=== PATIENT | female | born 1945 | race Caucasian/White ===

== ENCOUNTER 2017-07-25 15:35 | Inpatient (IN) | payer MEDICARE, OTHER ==
[2017-07-25] MEDS ORDERED: Iopamidol 755 Mg/ML 100 ML Bottle IVPUSH ONE (16:21)
[2017-07-25 16:35] LABS: CHLORIDE,CL 100 mEq/L (98-106); SODIUM,NA 138 mEq/L (136-145)
--- NOTE | 2017-07-25 19:57 | PCM.HP ---
H&P History of Present Illness - General Date of Service: 07/25/17 Admit Problem/Dx: RLL Pulomnary Emboli LLE DVT Source of Information: Patient History Limitations: Reports: No Limitations - History of Present Illness Initial Comments - Free Text/Narative: Ele is a 72 year old female who initially presented to Dr. Russell's clinic earlier today with complaints of left lower extremity swelling. She reports that the swelling started about a week ago. She noticed that the swelling worsened on Tuesday. Through the weekend she noticed that the swelling would go away in the morning, after her legs were elevated all night. She denies any pain to the extremity. She denies any numbness or tingling to the affected extremity. 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 She has a prosthesis and uses crutches at times to ambulate. She reports she has had no symptoms other than the swelling. She denies any SOB, cough, chest pain, palpitations. She denies history of any blood clots. She does report a history of chronic lymphocytic leukemia, for which she has been in remission. She reports she last saw her oncologist in March and "everything looked good." She denies any abdominal pain, N/V/D, or pain anywhere else. She denies any fever or chills. Does not have any other associated symptoms. Symptom Onset Date: 07/18/17 Duration of Symptoms: Reports: Constant, Getting Worse Location: Reports: Lower Extremity, Left Associated Symptoms: Reports: Other (swelling) - Related Data Allergies/Adverse Reactions: Allergies Allergy/AdvReac Type Severity Reaction Status Date / Time latex Allergy Unknown UNKNOWN Verified 07/25/17 19:45 Home Medications: Home Meds HCTZ/Triamterene [Dyazide 25-37.5 MG] 25 mg PO DAILY 07/04/14 [History] Calcium Carb & Citrate/Vit D3 [Calcium + D3 ER Tablet] 600 mg PO BID 05/04/15 [ History] Potassium Gluconate [Potassium] 1,785 mg PO DAILY 07/25/17 [History] Social & Family History - Tobacco Use Smoking Status *Q: Never Smoker Years of Tobacco use: 50 Second Hand Smoke Exposure: No - Alcohol Use Days Per Week of Alcohol Use: 7 Number of Drinks Per Day: 2 Total Drinks Per Week: 14 - Recreational Drug Use Recreational Drug Use: No - Living Situation & Occupation Living situation: Reports: with Family Occupation: Retired H&P Review of Systems - Review of Systems: Review Of Systems: ROS reveals no pertinent complaints other than HPI. General: Reports: No Symptoms. Denies: Fever, Chills, Weakness, Fatigue, Decreased Appetite HEENT: Reports: No Symptoms Pulmonary: Reports: No Symptoms. Denies: Shortness of Breath, Wheezing, Pleuritic Chest Pain, Cough, Sputum, Hemoptysis Cardiovascular: Reports: Edema (LLE). Denies: Chest Pain, Palpitations, Dyspnea on Exertion, Lightheadedness, Syncope Gastrointestinal: Reports: No Symptoms. Denies: Abdominal Pain, Black Stool, Bloody Stool, Diarrhea, Hematochezia, Melena, Nausea, Vomiting Genitourinary: Reports: No Symptoms. Denies: Dysuria, Frequency Musculoskeletal: Reports: No Symptoms. Denies: Leg Pain Skin: Reports: No Symptoms Psychiatric: Reports: No Symptoms Neurological: Reports: No Symptoms Hematologic/Lymphatic: Reports: No Symptoms. Denies: Anemia, Easy Bleeding, Easy Bruising, Swollen Glands Immunologic: Reports: No Symptoms Exam - Exam Exam: See Below - Vital Signs Weight: 153 lb 4.8 oz - Exam Quality Assessment: DVT Prophylaxis General: Alert, Oriented, Cooperative Neck: Supple, Trachea Midline, 2 Lungs: Clear to Auscultation, Normal Respiratory Effort Cardiovascular: Regular Rate, Regular Rhythm GI/Abdominal Exam: Normal Bowel Sounds, Soft, Non-Tender, No Organomegaly, No Distention, No Abnormal Bruit, No Mass, Pelvis Stable Back Exam: Normal Inspection, Full Range of Motion, NT Extremities: Normal Range of Motion, Non-Tender, Normal Capillary Refill, Sorin' s Sign (LLE +), Other (LLE 3+ pitting edema) Peripheral Pulses: 1+: Posterior Tibial (L), 2+: Dorsalis Pedis (L) Skin: Warm, Dry, Intact Neurological: Cranial Nerves Intact, Reflexes Equal Bilateral Neuro Extensive - Mental Status: Alert, Oriented x3, Normal Mood/Affect, Normal Cognition Neuro Extensive - Motor, Sensory, Reflexes: CN II-XII Intact, Normal Gait, Normal Reflexes Psychiatric: Alert, Normal Affect, Normal Mood - Patient Data Lab Results Last 24 hrs: Laboratory Results - last 24 hr 07/25/17 07/25/17 07/25/17 Range/Units 15:48 15:48 15:48 WBC 20.7 H* (5.0-10.0) 10^3/uL RBC 4.12 (4.00-5.50) 10^6/uL Hgb 13.7 (12.0-16.0) g/dL Hct 40.5 (37.0-47.0) % MCV 98.3 H (82.0-94.0) fL MCH 33.3 H (27.0-32.0) pg MCHC 33.8 (33.0-38.0) g/dL RDW Coeff of Thiago 12.0 (11.0-15.0) % Plt Count 238 (150-400) 10^3/uL Neut % (Auto) 31.2 L (35-85) % Lymph % (Auto) 63.2 H (10-55) % [place] % (Auto) 4.5 (0-16) % Eos % (Auto) 0.9 (0-5) % Baso % (Auto) 0.2 (0-3) % Neut # (Auto) 6.44 (1.80-7.00) 10^3/uL Lymph # (Auto) 13.07 H (1.00-4.80) 10^3/uL [place] # (Auto) 0.94 H (0.00-0.80) 10^3/uL Eos # (Auto) 0.19 (0.00-0.45) 10^3/uL Baso # (Auto) 0.05 10^3/uL ESR 10 (0-20) mm/hr D-Dimer, Quantitative 14.03 H (0.00-0.50) Sodium 138 (136-145) mEq/L Potassium 3.2 L (3.5-5.0) mEq/L Chloride 100 (98-106) mEq/L Carbon Dioxide 32 (21-32) mmol/L BUN 9 (7-18) mg/dL Creatinine 0.7 (0.6-1.0) mg/dL Est Cr Clr Drug Dosing TNP Estimated GFR (MDRD) > 60 (>=60) mL/min Glucose 92 (75-99) mg/dL Calcium 9.1 (8.4-10.1) mg/dL Total Bilirubin 0.7 (0.0-1.0) mg/dL AST 22 (15-37) U/L ALT 38 (12-78) U/L Alkaline Phosphatase 86 (46-116) U/L Total Protein 6.9 (6.4-8.2) g/dL Albumin 3.5 (3.4-5.0) g/dL Vitamin B12 630 (193-986) PG/ML Folate 18.1 (>8.6) NG/ML TSH, Ultra Sensitive 1.61 (0.36-5.60) uIU/mL Result Diagrams: 07/26/17 07:10 07/26/17 07:00 *Q Meaningful Use (ADM) - VTE *Q VTE Criteria *Q: - Stroke *Q Stroke Criteria *Q: - AMI *Q AMI Criteria *Q: - Problem List (1) Pulmonary embolism SNOMED Code(s): 72414982 ICD Code: I26.99 - OTHER PULMONARY EMBOLISM WITHOUT ACUTE COR PULMONALE Status: Acute Priority: High Current Visit: Yes Qualifiers: Pulmonary embolism type: other Chronicity: acute Acute cor pulmonale presence: without acute cor pulmonale Qualified Code(s): I26.99 - Other pulmonary embolism without acute cor pulmonale (2) DVT (deep venous thrombosis) SNOMED Code(s): 801107941 ICD Code: I82.409 - ACUTE EMBOLISM AND THOMBOS UNSP DEEP VN UNSP LOWER EXTREMITY Status: Acute Priority: High Current Visit: Yes Qualifiers: DVT location: lower extremity Affected thrombotic vein of extremity: other lower extremity vein Chronicity: acute Laterality: left Qualified Code(s) : I82.492 - Acute embolism and thrombosis of other specified deep vein of left lower extremity (3) CLL (chronic lymphocytic leukemia) SNOMED Code(s): 50718761 ICD Code: C91.10 - CHRONIC LYMPHOCYTIC LEUK OF B-CELL TYPE NOT ACHIEVE REMIS Status: Chronic Priority: Medium Current Visit: Yes Problem List Initiated/Reviewed/Updated: Yes Orders Last 24hrs: Active Orders 24 hr Category Date Time Status Ang Chest [CT] Routine Exams 07/25/17 Taken VL Duplex Lwr Ext Veins Ltd Lt [US] Routine Exams 07/25/17 Taken Assessment/Plan Comment:: Admit to inpatient Will dose 10 mg Coumadin today Daily INR, CBC, and BMP Lovenox 60 mg BID until INR therapeutic Patient will be inpatient until INR is therapeutic. Potential length of stay 3- 5 days.
[2017-07-25] MEDS ORDERED: Magnesium Hydroxide 400 MG/5 ML Susp 30 ML Cup PO PRN (20:00)
[2017-07-25] MEDS ORDERED: Ondansetron 4 MG/2 ML SDV IV PRN (20:00)
[2017-07-25] MEDS ORDERED: Sodium Chloride 0.9% 10 ML Syringe FLUSH PRN (20:00)
[2017-07-25] MEDS: Enoxaparin 60 MG/0.6 ML Syringe SUBCUT SCH (21:07)
[2017-07-25] MEDS: Calcium Carbonate/Vitamin D3 1250 MG-200 Unit Tab PO SCH (21:07)
[2017-07-25] MEDS: Temazepam 15 MG Cap PO PRN (22:16)
[2017-07-25] MEDS ORDERED: Warfarin 5 MG Tab PO ONE (22:27)
[2017-07-26] MEDS: Enoxaparin 60 MG/0.6 ML Syringe SUBCUT SCH ×3 (07:49→19:46)
[2017-07-26] MEDS: Calcium Carbonate/Vitamin D3 1250 MG-200 Unit Tab PO SCH ×2 (07:50→19:45)
[2017-07-26] MEDS: Hydrochlorothiazide/Triamterene 25-37.5 MG Cap PO SCH (07:50)
[2017-07-26] MEDS ORDERED: POTASSIUM GLUCONATE PO SCH (08:00)
[2017-07-26] MEDS ORDERED: Iopamidol 612 MG/ML 100 ML Bottle IVPUSH ONE (08:13)
[2017-07-26 08:24] LABS: CHLORIDE,CL 103 mEq/L (98-106); SODIUM,NA 140 mEq/L (136-145)
[2017-07-26] MEDS: Potassium Gluconate (99 MG) 2 MEQ Tab PO SCH (08:51)
[2017-07-26] MEDS ORDERED: Potassium Chloride 40 MEQ in Premix Bag 1 BAG IV ONE (09:00)
[2017-07-26] MEDS ORDERED: Dextrose 5%-0.45% NaCl 1,000 ML IV ONE (09:00)
--- NOTE | 2017-07-26 09:21 | PN ---
DATE: 07/26/2017 S: This is an elderly female who I saw in the clinic in [place] yesterday with a swollen left lower extremity. Right extremity had been amputated, D-dimer was elevated, so I went ahead and did do a CTA, it shows multiple pulmonary emboli. O: GENERAL: The patient is alert and orientated. VITAL SIGNS: As noted. NECK: Supple. CHEST: Clear. CARDIAC: Regular. EXTREMITIES: Edema in that left lower extremity is down. ASSESSMENT: DEEP VENOUS THROMBOSIS, MULTIPLE PULMONARY EMBOLI. P: Continue anticoagulation. SARA/MALLORIE /[id number]
[2017-07-26] MEDS: Warfarin 5 MG Tab PO SCH (12:18)
[2017-07-26] MEDS: Acetaminophen 325 MG Tab PO PRN (21:33)
[2017-07-26] MEDS: Temazepam 15 MG Cap PO PRN (21:59)
[2017-07-27 07:24] LABS: CHLORIDE,CL 105 mEq/L (98-106); SODIUM,NA 140 mEq/L (136-145)
[2017-07-27] MEDS: Hydrochlorothiazide/Triamterene 25-37.5 MG Cap PO SCH (07:43)
[2017-07-27] MEDS: Enoxaparin 60 MG/0.6 ML Syringe SUBCUT SCH ×2 (07:43→20:10)
[2017-07-27] MEDS: Calcium Carbonate/Vitamin D3 1250 MG-200 Unit Tab PO SCH ×2 (07:43→20:13)
[2017-07-27] MEDS: Warfarin 5 MG Tab PO SCH (07:43)
[2017-07-27] MEDS: Potassium Gluconate (99 MG) 2 MEQ Tab PO SCH (07:43)
--- NOTE | 2017-07-27 08:16 | PCM.PN ---
- General Info Date of Service: 07/27/17 Admission Dx/Problem (Free Text): RLL Pulomnary Emboli LLE DVT Functional Status: Reports: Pain Controlled, Tolerating Diet, Ambulating, Urinating. Denies: New Symptoms - Review of Systems General: Reports: No Symptoms. Denies: Fever, Weakness, Fatigue, Night Sweats HEENT: Reports: No Symptoms Pulmonary: Reports: No Symptoms. Denies: Shortness of Breath, Pleuritic Chest Pain, Cough, Sputum, Hemoptysis, Wheezing Cardiovascular: Reports: Edema (LLE 1+ pitting edema, much improved). Denies: Chest Pain, Palpitations, Dyspnea on Exertion, Orthopnea, Lightheadedness Gastrointestinal: Reports: No Symptoms. Denies: Abdominal Pain, Constipation, Decreased Appetite, Diarrhea, Hematochezia, Melena, Nausea, Vomiting Genitourinary: Reports: No Symptoms. Denies: Dysuria, Frequency Musculoskeletal: Reports: No Symptoms Skin: Reports: No Symptoms Neurological: Reports: No Symptoms Psychiatric: Reports: No Symptoms - Patient Data Vitals - Most Recent: Last Vital Signs Temp 98.0 F 07/27/17 04:00 Pulse 78 07/27/17 04:00 Resp 20 07/27/17 04:00 BP 140/76 07/27/17 04:00 Pulse Ox 96 07/27/17 04:00 Weight - Most Recent: 153 lb 4.8 oz Lab Results Last 24 Hours: Laboratory Results - last 24 hr 07/26/17 07/26/17 07/27/17 Range/Units 07:00 07:10 06:55 WBC (5.0-10.0) 10^3/uL RBC (4.00-5.50) 10^6/uL Hgb (12.0-16.0) g/dL Hct (37.0-47.0) % MCV (82.0-94.0) fL MCH (27.0-32.0) pg MCHC (33.0-38.0) g/dL RDW Coeff of Thiago (11.0-15.0) % Plt Count (150-400) 10^3/uL Neut % (Auto) (35-85) % Lymph % (Auto) (10-55) % [place] % (Auto) (0-16) % Eos % (Auto) (0-5) % Baso % (Auto) (0-3) % Neut # (Auto) (1.80-7.00) 10^3/uL Lymph # (Auto) (1.00-4.80) 10^3/uL [place] # (Auto) (0.00-0.80) 10^3/uL Eos # (Auto) (0.00-0.45) 10^3/uL Baso # (Auto) 10^3/uL PT 10.7 16.1 H (9.7-12.3) SEC INR 0.99 1.47 H (0.92-1.18) Sodium 140 (136-145) mEq/L Potassium 3.3 L (3.5-5.0) mEq/L Chloride 103 (98-106) mEq/L Carbon Dioxide 30 (21-32) mmol/L BUN 11 (7-18) mg/dL Creatinine 0.7 (0.6-1.0) mg/dL Est Cr Clr Drug Dosing 66.01 mL/min Estimated GFR (MDRD) > 60 (>=60) mL/min Glucose 111 H (75-99) mg/dL Calcium 8.9 (8.4-10.1) mg/dL 07/27/17 07/27/17 Range/Units 06:55 06:55 WBC 14.1 H (5.0-10.0) 10^3/uL RBC 3.80 L (4.00-5.50) 10^6/uL Hgb 12.6 (12.0-16.0) g/dL Hct 38.1 (37.0-47.0) % MCV 100.3 H (82.0-94.0) fL MCH 33.2 H (27.0-32.0) pg MCHC 33.1 (33.0-38.0) g/dL RDW Coeff of Thiago 12.2 (11.0-15.0) % Plt Count 209 (150-400) 10^3/uL Neut % (Auto) 27.8 L (35-85) % Lymph % (Auto) 66.1 H (10-55) % [place] % (Auto) 4.6 (0-16) % Eos % (Auto) 1.3 (0-5) % Baso % (Auto) 0.2 (0-3) % Neut # (Auto) 3.92 (1.80-7.00) 10^3/uL Lymph # (Auto) 9.33 H (1.00-4.80) 10^3/uL [place] # (Auto) 0.65 (0.00-0.80) 10^3/uL Eos # (Auto) 0.18 (0.00-0.45) 10^3/uL Baso # (Auto) 0.03 10^3/uL PT (9.7-12.3) SEC INR (0.92-1.18) Sodium 140 (136-145) mEq/L Potassium 3.5 (3.5-5.0) mEq/L Chloride 105 (98-106) mEq/L Carbon Dioxide 30 (21-32) mmol/L BUN 10 (7-18) mg/dL Creatinine 0.6 (0.6-1.0) mg/dL Est Cr Clr Drug Dosing 77.01 mL/min Estimated GFR (MDRD) > 60 (>=60) mL/min Glucose 120 H (75-99) mg/dL Calcium 8.9 (8.4-10.1) mg/dL Med Orders - Current: Current Medications Acetaminophen (Tylenol) 650 mg PO Q4H PRN PRN Reason: Pain (Mild 1-3)/fever Last Admin: 07/26/17 21:33 Dose: 650 mg Calcium Carbonate (Calcium Carbonate/Vitamin D 1250 Mg-200 Unit) 1 tab PO BID [facility] Last Admin: 07/27/17 07:43 Dose: 1 tab Enoxaparin Sodium (Lovenox) 60 mg SUBCUT Q12H [facility] Last Admin: 07/27/17 07:43 Dose: 60 mg Magnesium Hydroxide (Milk Of Magnesia) 30 ml PO Q12H PRN PRN Reason: Constipation Ondansetron HCl (Zofran) 4 mg IV Q6H PRN PRN Reason: Nausea/Vomiting Potassium (Potassium Gluconate) 6 meq PO DAILY [facility] Last Admin: 07/27/17 07:43 Dose: 6 meq Sodium Chloride (Saline Flush) 10 ml FLUSH ASDIRECTED PRN PRN Reason: Keep Vein Open Temazepam (Restoril) 15 mg PO BEDTIME PRN PRN Reason: Sleep Last Admin: 07/26/17 21:59 Dose: 15 mg Triamterene/HCTZ (Dyazide 25-37.5 Mg) 1 each PO DAILY [facility] Last Admin: 07/27/17 07:43 Dose: 1 each Warfarin Sodium (Coumadin) 10 mg PO DAILY [facility] Last Admin: 07/27/17 07:43 Dose: 10 mg Discontinued Medications Enoxaparin Sodium (Lovenox) 60 mg SUBCUT Q12H [facility] Last Admin: 07/26/17 07:49 Dose: 60 mg Dextrose/Sodium Chloride (Dextrose 5%-1/2 Ns) 1,000 mls @ 100 mls/hr IV ONETIME ONE Stop: 07/26/17 18:59 Last Admin: 07/26/17 10:57 Dose: 100 mls/hr Potassium Chloride 40 meq/ (Premix) 100 mls @ 10 mls/hr IV ONETIME ONE Stop: 07/26/17 18:59 Last Admin: 07/26/17 10:59 Dose: 10 mls/hr Iopamidol (Isovue-370 (76%)) 100 ml IVPUSH ONETIME ONE Stop: 07/25/17 16:22 Last Admin: 07/25/17 16:44 Dose: 100 ml Iopamidol (Isovue-300 (61%)) 100 ml IVPUSH ONETIME ONE Stop: 07/26/17 08:14 Last Admin: 07/26/17 14:09 Dose: 100 ml Non-Formulary Medication (Potassium Gluconate [Potassium]) 1,785 mg PO DAILY [facility] Warfarin Sodium (Coumadin) 10 mg PO ONETIME ONE Stop: 07/25/17 22:28 Last Admin: 07/25/17 23:37 Dose: 10 mg - Problem List & Annotations (1) Pulmonary embolism SNOMED Code(s): 63984471 Code(s): I26.99 - OTHER PULMONARY EMBOLISM WITHOUT ACUTE COR PULMONALE Status: Acute Priority: High Current Visit: Yes Qualifiers: Pulmonary embolism type: other Chronicity: acute Acute cor pulmonale presence: without acute cor pulmonale Qualified Code(s): I26.99 - Other pulmonary embolism without acute cor pulmonale (2) DVT (deep venous thrombosis) SNOMED Code(s): 543865677 Code(s): I82.409 - ACUTE EMBOLISM AND THOMBOS UNSP DEEP VN UNSP LOWER EXTREMITY Status: Acute Priority: High Current Visit: Yes Qualifiers: DVT location: lower extremity Affected thrombotic vein of extremity: other lower extremity vein Chronicity: acute Laterality: left Qualified Code(s) : I82.492 - Acute embolism and thrombosis of other specified deep vein of left lower extremity (3) CLL (chronic lymphocytic leukemia) SNOMED Code(s): 85837863 Code(s): C91.10 - CHRONIC LYMPHOCYTIC LEUK OF B-CELL TYPE NOT ACHIEVE REMIS Status: Chronic Priority: Medium Current Visit: Yes - My Orders Last 24 Hours: My Active Orders 07/26/17 08:00 Abdomen Pelvis w Cont [CT] Stat Enoxaparin [Lovenox] 60 mg SUBCUT Q12H HCTZ/Triamterene [Dyazide 25-37.5 MG] 1 each PO DAILY Potassium Gluconate 6 meq PO DAILY 07/26/17 12:00 Warfarin [Coumadin] 10 mg PO DAILY 07/28/17 06:00 BMP [BASIC METABOLIC PANEL,BMP] [CHEM] DAILY CBC WITH AUTO DIFF [HEME] DAILY INR,PT,PROTHROMBIN TIME [COAG] DAILY 07/29/17 06:00 BMP [BASIC METABOLIC PANEL,BMP] [CHEM] DAILY INR,PT,PROTHROMBIN TIME [COAG] DAILY 07/30/17 06:00 INR,PT,PROTHROMBIN TIME [COAG] DAILY - Plan Plan:: Admit to inpatient Will dose 10 mg Coumadin today Daily INR, CBC, and BMP Lovenox 60 mg BID until INR therapeutic Patient will be inpatient until INR is therapeutic. Potential length of stay 3- 5 days.
--- NOTE | 2017-07-27 12:58 | PN ---
DATE: 07/27/2017 S: Ele Johnson is in with bilateral pulmonary emboli. O: NECK: Supple. CHEST: Clear. CARDIAC: Good. EXTREMITIES: Edema of the left lower extremity is almost gone. ASSESSMENT: MULTIPLE PULMONARY EMBOLI. P: Continue anticoagulation. Her potassium has corrected. SARA/MALLORIE /[id number]
[2017-07-27] MEDS: Acetaminophen 325 MG Tab PO PRN (16:34)
[2017-07-27] MEDS: Temazepam 15 MG Cap PO PRN (21:43)
[2017-07-28 07:33] LABS: CHLORIDE,CL 104 mEq/L (98-106); SODIUM,NA 139 mEq/L (136-145)
[2017-07-28 07:48] VITALS: BP 149/85
[2017-07-28] MEDS: Calcium Carbonate/Vitamin D3 1250 MG-200 Unit Tab PO SCH (08:43)
[2017-07-28] MEDS: Potassium Gluconate (99 MG) 2 MEQ Tab PO SCH (08:43)
[2017-07-28] MEDS: Hydrochlorothiazide/Triamterene 25-37.5 MG Cap PO SCH (08:43)
--- NOTE | 2017-07-28 08:43 | PCM.DCSUM1 ---
Discharge Summary - Hospital Course HPI Initial Comments: Ele is a 72 year old female who was admitted to the hospital on 07/25/[address] Echeverria clinic for DVT and Pulmonary Embolism. She had a swollen LLE and an elevated D-Dimer. US of LLE showed clotting of deep perneal vein. Chest CTA revealed multiple pulmonary emboli in the right lower lobe. Patient was admitted for anticoagulation. She was initially dosed 10 mg of Coumadin. She was bridged with Lovenox until her INR was therapeutic. Her INR went from 0.99 07/26, 1.47 07/27, and 2.34 07/28 (date of discharge). Her swelling in her leg improved drastically. At the time of discharge she had trace swelling in her LLE. Pedal and post tib pulses were 2+. She had no complications during hospital stay and was feeling well. At time of discharge she was anxious to go home. Patient will be discharged home on 5 mg daily of Coumadin. She is to follow up with Dr. Russell in clinic on Tuesday in [place]. Will get INR at that time. - Discharge Data Discharge Date: 07/28/17 Discharge Disposition: Home, Self-Care 01 Condition: Good - Discharge Diagnosis/Problem(s) (1) Pulmonary embolism SNOMED Code(s): 79472105 ICD Code: I26.99 - OTHER PULMONARY EMBOLISM WITHOUT ACUTE COR PULMONALE Status: Acute Priority: High Qualifiers: Pulmonary embolism type: other Chronicity: acute Acute cor pulmonale presence: without acute cor pulmonale Qualified Code(s): I26.99 - Other pulmonary embolism without acute cor pulmonale (2) DVT (deep venous thrombosis) SNOMED Code(s): 999457343 ICD Code: I82.409 - ACUTE EMBOLISM AND THOMBOS UNSP DEEP VN UNSP LOWER EXTREMITY Status: Acute Priority: High Qualifiers: DVT location: lower extremity Affected thrombotic vein of extremity: other lower extremity vein Chronicity: acute Laterality: left Qualified Code(s) : I82.492 - Acute embolism and thrombosis of other specified deep vein of left lower extremity (3) CLL (chronic lymphocytic leukemia) SNOMED Code(s): 32932281 ICD Code: C91.10 - CHRONIC LYMPHOCYTIC LEUK OF B-CELL TYPE NOT ACHIEVE REMIS Status: Chronic Priority: Medium - Patient Instructions Diet: Usual Diet as Tolerated Activity: As Tolerated Driving: May Drive Today Notify Provider of: Fever, Increased Pain, Swelling and Redness - Discharge Plan Prescriptions/Med Rec: Warfarin [Coumadin] 5 mg PO DAILY 30 Days #30 tablet Home Medications: Home Meds HCTZ/Triamterene [Dyazide 25-37.5 MG] 25 mg PO DAILY 07/04/14 [History] Calcium Carb & Citrate/Vit D3 [Calcium + D3 ER Tablet] 600 mg PO BID 05/04/15 [ History] Potassium Gluconate [Potassium] 1,785 mg PO DAILY 07/25/17 [History] Warfarin [Coumadin] 5 mg PO DAILY 30 Days #30 tablet 07/28/17 [Rx] Patient Handouts: Warfarin: What You Need to Know, Pulmonary Embolism, Deep Vein Thrombosis Referrals: Lexx Russell MD [Primary Care Provider] - - Discharge Summary/Plan Comment Discharge Summary/Plan Comment: Coumadin 5 mg daily Follow up in clinic with Dr. Russell on Tuesday in [place] Notify provider sooner of any worsening of symptoms, shortness of breath, or chest pain - Patient Data Vitals - Most Recent: Last Vital Signs Temp 97.2 F 07/28/17 07:47 Pulse 68 07/28/17 07:47 Resp 20 07/28/17 07:47 BP 149/85 H 07/28/17 07:47 Pulse Ox 96 07/28/17 07:47 Weight - Most Recent: 153 lb 4.8 oz Lab Results - Last 24 hrs: Laboratory Results - last 24 hr 07/28/17 07/28/17 07/28/17 Range/Units 07:11 07:11 07:11 WBC 15.3 H (5.0-10.0) 10^3/uL RBC 3.94 L (4.00-5.50) 10^6/uL Hgb 13.2 (12.0-16.0) g/dL Hct 38.3 (37.0-47.0) % MCV 97.2 H (82.0-94.0) fL MCH 33.5 H (27.0-32.0) pg MCHC 34.5 (33.0-38.0) g/dL RDW Coeff of Thiago 12.0 (11.0-15.0) % Plt Count 229 (150-400) 10^3/uL Neut % (Auto) 26.6 L (35-85) % Lymph % (Auto) 69.5 H (10-55) % [place] % (Auto) 2.7 (0-16) % Eos % (Auto) 1.0 (0-5) % Baso % (Auto) 0.2 (0-3) % Neut # (Auto) 4.07 (1.80-7.00) 10^3/uL Lymph # (Auto) 10.63 H (1.00-4.80) 10^3/uL [place] # (Auto) 0.41 (0.00-0.80) 10^3/uL Eos # (Auto) 0.15 (0.00-0.45) 10^3/uL Baso # (Auto) 0.03 10^3/uL PT 26.0 H (9.7-12.3) SEC INR 2.34 H (0.92-1.18) Sodium 139 (136-145) mEq/L Potassium 3.7 (3.5-5.0) mEq/L Chloride 104 (98-106) mEq/L Carbon Dioxide 30 (21-32) mmol/L BUN 9 (7-18) mg/dL Creatinine 0.6 (0.6-1.0) mg/dL Est Cr Clr Drug Dosing 77.01 mL/min Estimated GFR (MDRD) > 60 (>=60) mL/min Glucose 100 H (75-99) mg/dL Calcium 8.9 (8.4-10.1) mg/dL Med Orders - Current: Current Medications Acetaminophen (Tylenol) 650 mg PO Q4H PRN PRN Reason: Pain (Mild 1-3)/fever Last Admin: 07/27/17 16:34 Dose: 650 mg Calcium Carbonate (Calcium Carbonate/Vitamin D 1250 Mg-200 Unit) 1 tab PO BID [facility] Last Admin: 07/27/17 20:13 Dose: 1 tab Enoxaparin Sodium (Lovenox) 60 mg SUBCUT Q12H [facility] Last Admin: 07/27/17 20:10 Dose: 60 mg Magnesium Hydroxide (Milk Of Magnesia) 30 ml PO Q12H PRN PRN Reason: Constipation Ondansetron HCl (Zofran) 4 mg IV Q6H PRN PRN Reason: Nausea/Vomiting Potassium (Potassium Gluconate) 6 meq PO DAILY [facility] Last Admin: 07/27/17 07:43 Dose: 6 meq Sodium Chloride (Saline Flush) 10 ml FLUSH ASDIRECTED PRN PRN Reason: Keep Vein Open Temazepam (Restoril) 15 mg PO BEDTIME PRN PRN Reason: Sleep Last Admin: 07/27/17 21:43 Dose: 15 mg Triamterene/HCTZ (Dyazide 25-37.5 Mg) 1 each PO DAILY [facility] Last Admin: 07/27/17 07:43 Dose: 1 each Warfarin Sodium (Coumadin) 10 mg PO DAILY [facility] Last Admin: 07/27/17 07:43 Dose: 10 mg Discontinued Medications Enoxaparin Sodium (Lovenox) 60 mg SUBCUT Q12H [facility] Last Admin: 07/26/17 07:49 Dose: 60 mg Dextrose/Sodium Chloride (Dextrose 5%-1/2 Ns) 1,000 mls @ 100 mls/hr IV ONETIME ONE Stop: 07/26/17 18:59 Last Admin: 07/26/17 10:57 Dose: 100 mls/hr Potassium Chloride 40 meq/ (Premix) 100 mls @ 10 mls/hr IV ONETIME ONE Stop: 07/26/17 18:59 Last Admin: 07/26/17 10:59 Dose: 10 mls/hr Iopamidol (Isovue-370 (76%)) 100 ml IVPUSH ONETIME ONE Stop: 07/25/17 16:22 Last Admin: 07/25/17 16:44 Dose: 100 ml Iopamidol (Isovue-300 (61%)) 100 ml IVPUSH ONETIME ONE Stop: 07/26/17 08:14 Last Admin: 07/26/17 14:09 Dose: 100 ml Non-Formulary Medication (Potassium Gluconate [Potassium]) 1,785 mg PO DAILY [facility] Warfarin Sodium (Coumadin) 10 mg PO ONETIME ONE Stop: 07/25/17 22:28 Last Admin: 07/25/17 23:37 Dose: 10 mg *Q Meaningful Use (DIS) - VTE *Q VTE Criteria *Q: - Stroke *Q Stroke Criteria *Q: - AMI *Q AMI Criteria *Q:
[2017-07-28] MEDS: Warfarin 5 MG Tab PO SCH (08:48)
[2017-07-28] MEDS: Enoxaparin 60 MG/0.6 ML Syringe SUBCUT SCH (08:48)
== END 2017-07-28 10:45 | disposition home or self-care (01) | DRG 176 ==
LOC: CC.CHC 15:35 → CC.MS 15:35 → UNDOADMIN 18:09 → CC.MS 18:09
PROVIDERS: ADMIT Nurse Practitioner Family; ATTEND General Practice
DX: R06.9 Unspecified abnormalities of breathing (principal); I26.99 Other pulmonary embolism without acute cor pulmonale; I82.492 Acute embolism and thrombosis of other specified deep vein of left lower extremity; C91.11 Chronic lymphocytic leukemia of B-cell type in remission; R60.9 Edema, unspecified; R06.02 Shortness of breath; M19.90 Unspecified osteoarthritis, unspecified site; I10 Essential (primary) hypertension; Z91.040 Latex allergy status; Z79.899 Other long term (current) drug therapy; Z87.891 Personal history of nicotine dependence; Z89.611 Acquired absence of right leg above knee
CPT/HCPCS: 36415; 71275; 80053; 82607; 82746; 84443; 85025; 85379; 85651; 93971; Q9967 ×2; 74177; 80048; 81001; 83735; 85610; A9270-GY; J1650; J3480; J7042

== ENCOUNTER → 2019-08-28 | Day surgery (SDC) | payer MEDICARE, OTHER ==
[~2019-08-28] MED LIST: Lidocaine 1% 20 ML MDV ONE
[2019-08-28 13:58] VITALS: BP 132/77; PULSE 72
--- NOTE | 2019-08-29 09:47 | OR ---
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 SURGEON: Gerald Longo MD PROCEDURE: RFS CATHETER ABLATION, INCOMPETENT SUPERVISOR CIGAR MAKING MACHINE. ANESTHESIA: Local. COMPLICATIONS: None. SPECIMEN: None. FINDINGS: Successful ablation of incompetent audit machine operator, left calf, 20 cm from heel. INDICATIONS: The patient has a CEAP classification of 5 with recurrent ulcerations in the calf area. Multiple prior ablations and sclerotherapy have been done. She has documented audit machine operator in the calf and it measured at our facility just under 3.5 cm, but with documented reflux, she elected to proceed with ablation. DESCRIPTION OF PROCEDURE: The patient was prepped and draped, placed in the supine position with left leg externally rotated. Incompetent audit machine operator was isolated via ultrasound. A small lidocaine deposit was made in the epidermis. An 11 blade scalpel was used for skin nicking. RFS catheter was inserted and advanced in usual fashion into the incompetent vein without complication. Stylet was removed and good blood flow was returned through the hub of the RFS catheter. Lidocaine was then deposited in the immediate treatment area in usual fashion under ultrasound guidance. We were approximately 8 mm from skin and well over a centimeter from the deep junction. Ablation was accomplished in usual fashion in a 4-quadrant region. With device temperature at 85 degrees Celsius, impedance remained below 300 for the majority of the procedure. Three segments were done for a minute, the 4-segment impedance went up just over 400 and that area was impedance down. Repeat treatment upon slow withdrawal was accomplished in the usual fashion without any complication. The patient tolerated the procedure well. Skin incision was closed with the suture. The patient's leg was compressed from the foot to the calf in usual fashion. The patient was stable in the recovery room. She will have routine followup. GEOVANNA/MALLORIE /[id number]
== END ==
LOC: CC.SDS 10:14
PROVIDERS: ATTEND Family Medicine
DX: I83.028 Varicose veins of left lower extremity with ulcer other part of lower leg (principal)
CPT/HCPCS: A4216

== ENCOUNTER 2024-02-24 00:15 | Emergency (ER) | payer MEDICARE, OTHER ==
[2024-02-24 00:36] LABS: HEMATOCRIT 35.4 % (37.0-47.0); HEMOGLOBIN 11.9 g/dL (12.0-16.0); MEAN CORPUSCULAR HEMOGLOBIN 33.3 pg (27.0-32.0); MEAN CORPUSCULAR HGB CONC 33.6 g/dL (32.0-36.0); MEAN CORPUSCULAR VOLUME 99.2 fL (83.0-97.0); PLATELET COUNT,PLT 160 10^3/uL (150-400); RED BLOOD CELL COUNT 3.57 x10^6/uL (4.00-5.50); WHITE BLOOD CELL COUNT,WBC 13.9 10^3/uL (4.0-11.0)
[2024-02-24 00:53] LABS: ALANINE AMINOTRANSFERASE,ALT 29 U/L (12-78); ALBUMIN 3.1 g/dL (3.4-5.0); ALKALINE PHOSPHATASE 51 U/L (46-116); ASPARTATE AMNIOTRANSFERASE,AST 24 U/L (15-37); BILIRUBIN TOTAL 0.5 mg/dL (0.0-1.0); BLOOD UREA NITROGEN,BUN 15 mg/dL (7-18); CALCIUM 8.8 mg/dL (8.4-10.1); CARBON DIOXIDE,CO2 27 mmol/L (21-32); CHLORIDE,CL 99 mEq/L (98-106); CREATININE 0.8 mg/dL (0.6-1.0); GLUCOSE RANDOM 106 mg/dL (75-99); POTASSIUM,K 3.6 mEq/L (3.5-5.0); PROTEIN TOTAL,TP 6.1 g/dL (6.4-8.2); SODIUM,NA 135 mEq/L (136-145)
[2024-02-24 00:56] LABS: ESTIMATED GFR 74 mL/min (>=60)
[2024-02-24 01:05] LABS: BASOPHILS ABSOLUTE MAN 0.14 10^3/uL; BASOPHILS PERCENT MAN 1 % (0-3); EOSINOPHILS ABSOLUTE MAN 0.14 10^3/uL (0.00-0.45); EOSINOPHILS PERCENT MAN 1 % (0-5); LYMPHOCYTES ABSOLUTE MAN 7.37 10^3/uL (1.00-4.80); LYMPHOCYTES PERCENT MAN 53 % (21-55); MONOCYTES ABSOLUTE MAN 0.28 10^3/uL (0.00-0.80); MONOCYTES PERCENT MAN 2 % (2-12); NEUTROPHILS ABSOLUTE MAN 5.98 10^3/uL (1.80-7.00); SEG NEUTROPHILS PERCENT MAN 43 % (35-85); SMUDGE CELLS MODERATE (NOT SEEN)
[2024-02-24 01:27] LABS: INR 1.88 (0.92-1.18); PROTHROMBIN TIME 19.1 SEC (9.3-11.3)
[2024-02-24 01:48] LABS: APPEARANCE,URINE CLEAR (CLEAR); BILIRUBIN,URINE NEGATIVE (NEGATIVE); COLOR,URINE YELLOW (YELLOW); GLUCOSE,URINE NEGATIVE (NEGATIVE); KETONES,URINE NEGATIVE (NEGATIVE); LEUKOCYTE ESTERASE,URINE NEGATIVE (NEGATIVE); NITRITE,URINE NEGATIVE (NEGATIVE); OCCULT BLOOD,URINE TRACE-LYSED (NEGATIVE); PROTEIN,URINE NEGATIVE (NEGATIVE); UROBILINOGEN,URINE 0.2 EU/dL (0.2-1.0)
[2024-02-24 01:55] LABS: RBC,URINE 0-5 /HPF (0-5); SQUAMOUS EPITHELIAL CELLS,UR FEW /HPF (NOT SEEN); WBC,URINE NOT SEEN /HPF (0-5)
[2024-02-24 01:56] LABS: BACTERIA,URINE OCCASIONAL /HPF (NOT SEEN)
[2024-02-24 04:12] VITALS: BP 120/58; PULSE 74
== END 2024-02-24 03:00 | disposition home or self-care (01) ==
LOC: CC.ED 00:15
DX: S09.90XA Unspecified injury of head, initial encounter (principal); Z91.040 Latex allergy status; Z79.899 Other long term (current) drug therapy; W18.30XA Fall on same level, unspecified, initial encounter
CPT/HCPCS: 36415; 70450; 71045; 72125; 80053; 81001; 84484; 85025; 85610; 85730; 93005; 99284

== ENCOUNTER 2024-02-26 11:47 | Emergency (ER) | payer MEDICARE, OTHER ==
[2024-02-26 12:20] VITALS: BP 145/82; PULSE 84
[2024-02-26] MEDS: Albuterol/Ipratropium 3.0-0.5 MG/3 ML Neb Soln NEB ONE (12:21)
[2024-02-26 12:35] LABS: BASOPHILS ABSOLUTE AUTO 0.04 10^3/uL (0.00-0.50); BASOPHILS PERCENT AUTO 0.3 % (0-1); EOSINOPHILS ABSOLUTE AUTO 0.01 10^3/uL (0.00-1.50); EOSINOPHILS PERCENT AUTO 0.1 % (0-6); HEMATOCRIT 36.9 % (37.0-47.0); HEMOGLOBIN 12.4 g/dL (12.0-16.0); IMMATURE GRAN ABSOLUTE AUTO 0.03 10^3/uL (0.00-0.49); IMMATURE GRAN PERCENT AUTO 0.2 % (0.0-4.9); LYMPHOCYTES ABSOLUTE AUTO 4.47 10^3/uL (0.60-5.00); LYMPHOCYTES PERCENT AUTO 32.8 % (24-44); MEAN CORPUSCULAR HEMOGLOBIN 33.5 pg (27.0-32.0); MEAN CORPUSCULAR HGB CONC 33.6 g/dL (32.0-36.0); MEAN CORPUSCULAR VOLUME 99.7 fL (83.0-97.0); MONOCYTES ABSOLUTE AUTO 0.51 10^3/uL (0.00-1.50); MONOCYTES PERCENT AUTO 3.7 % (0-10); NEUTROPHILS ABSOLUTE AUTO 8.58 x10^3/uL (1.80-8.00); NEUTROPHILS PERCENT AUTO 62.9 % (41-71); PLATELET COUNT,PLT 134 10^3/uL (150-400); WHITE BLOOD CELL COUNT,WBC 13.6 10^3/uL (4.0-11.0)
[2024-02-26 12:40] LABS: APPEARANCE,URINE CLEAR (CLEAR); BILIRUBIN,URINE NEGATIVE (NEGATIVE); COLOR,URINE YELLOW (YELLOW); GLUCOSE,URINE NEGATIVE (NEGATIVE); KETONES,URINE NEGATIVE (NEGATIVE); LEUKOCYTE ESTERASE,URINE SMALL (NEGATIVE); NITRITE,URINE NEGATIVE (NEGATIVE); OCCULT BLOOD,URINE MODERATE (NEGATIVE); PH,URINE 7.5 (4.5-8.0); PROTEIN,URINE NEGATIVE (NEGATIVE)
[2024-02-26 12:42] LABS: BACTERIA,URINE OCCASIONAL /HPF (NOT SEEN); EPITHELIAL CELLS,URINE OCCASIONAL /HPF (NOT SEEN); MUCUS,URINE FEW /HPF (NOT SEEN); RBC,URINE 0-5 /HPF (0-5); WBC,URINE 0-5 /HPF (0-5)
[2024-02-26] MEDS: Acetaminophen 500 MG Tab PO ONE (12:47)
[2024-02-26 12:48] LABS: INR 2.78 (0.92-1.18); PROTHROMBIN TIME 27.8 SEC (9.3-11.3)
[2024-02-26 12:58] LABS: ALBUMIN 3.4 g/dL (3.4-5.0); BILIRUBIN TOTAL 1.2 mg/dL (0.0-1.0); C-REACTIVE PROTEIN 1.89 mg/dL (<=0.50); CALCIUM 8.7 mg/dL (8.4-10.1); CREATININE 0.7 mg/dL (0.6-1.0); EST CRCL DRUG DOSING (CG) 60.01 mL/min; MAGNESIUM 1.4 mg/dL (1.8-2.4); POTASSIUM,K 3.8 mEq/L (3.5-5.0); PROTEIN TOTAL,TP 6.9 g/dL (6.4-8.2)
[2024-02-26] MEDS: Magnesium Oxide 400 MG Tab PO ONE (13:33)
== END 2024-02-26 13:35 | disposition home or self-care (01) ==
LOC: CC.ED 11:47
DX: U07.1 COVID-19 (principal); I10 Essential (primary) hypertension; Z79.01 Long term (current) use of anticoagulants; Z79.899 Other long term (current) drug therapy; Z91.040 Latex allergy status
CPT/HCPCS: 36415; 71046; 80053; 81001; 83605; 83735; 85025; 85610; 86140; 87040; 94640; 99284; A9270-GY; J7620-GY; U0002

== ENCOUNTER 2024-03-14 22:58 | Observation (INO) | payer MEDICARE, OTHER ==
[2024-03-14 23:03] LABS: BASOPHILS ABSOLUTE AUTO 0.05 10^3/uL (0.00-0.50); BASOPHILS PERCENT AUTO 0.3 % (0-1); EOSINOPHILS PERCENT AUTO 0.6 % (0-6); HEMATOCRIT 35.5 % (37.0-47.0); HEMOGLOBIN 12.4 g/dL (12.0-16.0); IMMATURE GRAN ABSOLUTE AUTO 0.03 10^3/uL (0.00-0.49); IMMATURE GRAN PERCENT AUTO 0.2 % (0.0-4.9); LYMPHOCYTES ABSOLUTE AUTO 10.66 10^3/uL (0.60-5.00); LYMPHOCYTES PERCENT AUTO 65.7 % (24-44); MEAN CORPUSCULAR HEMOGLOBIN 33.7 pg (27.0-32.0); MEAN CORPUSCULAR HGB CONC 34.9 g/dL (32.0-36.0); MEAN CORPUSCULAR VOLUME 96.5 fL (83.0-97.0); MONOCYTES ABSOLUTE AUTO 0.76 10^3/uL (0.00-1.50); MONOCYTES PERCENT AUTO 4.7 % (0-10); NEUTROPHILS ABSOLUTE AUTO 4.62 x10^3/uL (1.80-8.00); NEUTROPHILS PERCENT AUTO 28.5 % (41-71); PLATELET COUNT,PLT 234 10^3/uL (150-400); RED BLOOD CELL COUNT 3.68 x10^6/uL (4.00-5.50); WHITE BLOOD CELL COUNT,WBC 16.2 10^3/uL (4.0-11.0)
[2024-03-14 23:11] LABS: PROTHROMBIN TIME 74.9 SEC (9.3-11.3)
[2024-03-14 23:17] LABS: INR 7.87 (0.92-1.18)
[2024-03-14 23:23] LABS: APPEARANCE,URINE CLEAR (CLEAR); BILIRUBIN,URINE NEGATIVE (NEGATIVE); COLOR,URINE YELLOW (YELLOW); GLUCOSE,URINE NEGATIVE (NEGATIVE); KETONES,URINE NEGATIVE (NEGATIVE); LEUKOCYTE ESTERASE,URINE NEGATIVE (NEGATIVE); NITRITE,URINE NEGATIVE (NEGATIVE); OCCULT BLOOD,URINE TRACE-INTACT (NEGATIVE); PROTEIN,URINE NEGATIVE (NEGATIVE); UROBILINOGEN,URINE 0.2 EU/dL (0.2-1.0)
[2024-03-14 23:24] LABS: RBC,URINE NOT SEEN /HPF (0-5); WBC,URINE NOT SEEN /HPF (0-5)
[2024-03-14 23:25] LABS: ALANINE AMINOTRANSFERASE,ALT 26 U/L (12-78); ALKALINE PHOSPHATASE 44 U/L (46-116); ASPARTATE AMNIOTRANSFERASE,AST 20 U/L (15-37); BILIRUBIN TOTAL 0.4 mg/dL (0.0-1.0); BLOOD UREA NITROGEN,BUN 16 mg/dL (7-18); CALCIUM 8.9 mg/dL (8.4-10.1); CARBON DIOXIDE,CO2 26 mmol/L (21-32); CHLORIDE,CL 93 mEq/L (98-106); CREATININE 0.9 mg/dL (0.6-1.0); ETHANOL BLOOD MEDICAL 137 mg/dL (0-3); GLUCOSE RANDOM 105 mg/dL (75-99); POTASSIUM,K 3.6 mEq/L (3.5-5.0); PROTEIN TOTAL,TP 6.4 g/dL (6.4-8.2); SODIUM,NA 129 mEq/L (136-145)
[2024-03-14 23:26] LABS: ESTIMATED GFR 65 mL/min (>=60)
[2024-03-14] MEDS: Phytonadione 5 MG Tab PO ONE (23:45)
[2024-03-14] MEDS: Sodium Chloride 0.9% 1,000 ML IV SCH (23:54)
[2024-03-15] MEDS ORDERED: Ondansetron 4 MG/2 ML SDV IV PRN (00:51)
[2024-03-15] MEDS ORDERED: [UNRECOGNIZED DRUG - OTHER] PO PRN (00:51)
[2024-03-15] MEDS ORDERED: Ondansetron 4 MG Tab.DIS PO PRN (00:51)
[2024-03-15] MEDS ORDERED: ALENDRONATE SODIUM 70 MG PO SCH (00:51)
[2024-03-15] MEDS ORDERED: ACETAMINOPHEN PO PRN (00:51)
[2024-03-15] MEDS ORDERED: CODEINE PO PRN (00:51)
[2024-03-15 07:11] LABS: BASOPHILS ABSOLUTE AUTO 0.06 10^3/uL (0.00-0.50); BASOPHILS PERCENT AUTO 0.5 % (0-1); EOSINOPHILS ABSOLUTE AUTO 0.09 10^3/uL (0.00-1.50); EOSINOPHILS PERCENT AUTO 0.7 % (0-6); HEMATOCRIT 32.8 % (37.0-47.0); HEMOGLOBIN 11.4 g/dL (12.0-16.0); IMMATURE GRAN ABSOLUTE AUTO 0.02 10^3/uL (0.00-0.49); IMMATURE GRAN PERCENT AUTO 0.2 % (0.0-4.9); LYMPHOCYTES ABSOLUTE AUTO 7.42 10^3/uL (0.60-5.00); LYMPHOCYTES PERCENT AUTO 59.9 % (24-44); MEAN CORPUSCULAR HEMOGLOBIN 33.5 pg (27.0-32.0); MEAN CORPUSCULAR HGB CONC 34.8 g/dL (32.0-36.0); MEAN CORPUSCULAR VOLUME 96.5 fL (83.0-97.0); MONOCYTES ABSOLUTE AUTO 0.68 10^3/uL (0.00-1.50); MONOCYTES PERCENT AUTO 5.5 % (0-10); NEUTROPHILS ABSOLUTE AUTO 4.11 x10^3/uL (1.80-8.00); NEUTROPHILS PERCENT AUTO 33.2 % (41-71); PLATELET COUNT,PLT 219 10^3/uL (150-400); WHITE BLOOD CELL COUNT,WBC 12.4 10^3/uL (4.0-11.0)
[2024-03-15 07:33] LABS: ALBUMIN 2.8 g/dL (3.4-5.0); BILIRUBIN TOTAL 0.5 mg/dL (0.0-1.0); CREATININE 0.7 mg/dL (0.6-1.0); EST CRCL DRUG DOSING (CG) 57.68 mL/min; POTASSIUM,K 4.1 mEq/L (3.5-5.0); PROTEIN TOTAL,TP 5.8 g/dL (6.4-8.2)
[2024-03-15] MEDS: Metoprolol Succinate 25 MG Tab.ER PO SCH (07:36)
[2024-03-15] MEDS: Sertraline 25 MG Tab PO SCH (07:36)
[2024-03-15] MEDS: Hydrochlorothiazide/Triamterene 25-37.5 Tab PO SCH (07:36)
[2024-03-15] MEDS: Lisinopril 20 MG Tab PO SCH (07:37)
[2024-03-15 07:58] LABS: INR 8.1 (0.92-1.18)
[2024-03-15] MEDS: TAMOXIFEN 20 MG PO SCH (10:30)
[2024-03-15 20:20] LABS: INR 3.07 (0.92-1.18); PROTHROMBIN TIME 30.6 SEC (9.3-11.3)
[2024-03-15] MEDS: Acetaminophen 325 MG Tab PO PRN (22:06)
[2024-03-16] MEDS: Sodium Chloride 0.9% 1,000 ML IV SCH (04:49)
[2024-03-16 07:29] LABS: BASOPHILS ABSOLUTE AUTO 0.05 10^3/uL (0.00-0.50); BASOPHILS PERCENT AUTO 0.5 % (0-1); EOSINOPHILS ABSOLUTE AUTO 0.12 10^3/uL (0.00-1.50); EOSINOPHILS PERCENT AUTO 1.1 % (0-6); HEMOGLOBIN 12.3 g/dL (12.0-16.0); IMMATURE GRAN ABSOLUTE AUTO 0.01 10^3/uL (0.00-0.49); IMMATURE GRAN PERCENT AUTO 0.1 % (0.0-4.9); LYMPHOCYTES ABSOLUTE AUTO 6.14 10^3/uL (0.60-5.00); LYMPHOCYTES PERCENT AUTO 56.7 % (24-44); MEAN CORPUSCULAR HEMOGLOBIN 32.9 pg (27.0-32.0); MEAN CORPUSCULAR HGB CONC 33.2 g/dL (32.0-36.0); MEAN CORPUSCULAR VOLUME 98.9 fL (83.0-97.0); MONOCYTES ABSOLUTE AUTO 0.57 10^3/uL (0.00-1.50); MONOCYTES PERCENT AUTO 5.3 % (0-10); NEUTROPHILS ABSOLUTE AUTO 3.94 x10^3/uL (1.80-8.00); NEUTROPHILS PERCENT AUTO 36.3 % (41-71); PLATELET COUNT,PLT 208 10^3/uL (150-400); RED BLOOD CELL COUNT 3.74 x10^6/uL (4.00-5.50); WHITE BLOOD CELL COUNT,WBC 10.8 10^3/uL (4.0-11.0)
[2024-03-16 07:42] LABS: ALANINE AMINOTRANSFERASE,ALT 25 U/L (12-78); ALBUMIN 3.1 g/dL (3.4-5.0); ALKALINE PHOSPHATASE 40 U/L (46-116); ASPARTATE AMNIOTRANSFERASE,AST 18 U/L (15-37); BLOOD UREA NITROGEN,BUN 12 mg/dL (7-18); CALCIUM 8.4 mg/dL (8.4-10.1); CARBON DIOXIDE,CO2 28 mmol/L (21-32); CHLORIDE,CL 100 mEq/L (98-106); CREATININE 0.6 mg/dL (0.6-1.0); EST CRCL DRUG DOSING (CG) 67.29 mL/min; GLUCOSE RANDOM 108 mg/dL (75-99); POTASSIUM,K 4.4 mEq/L (3.5-5.0); PROTEIN TOTAL,TP 6.2 g/dL (6.4-8.2); SODIUM,NA 135 mEq/L (136-145)
[2024-03-16 07:48] LABS: C-REACTIVE PROTEIN < 0.50 mg/dL (<=0.50); ESTIMATED GFR 91 mL/min (>=60); INR 1.92 (0.92-1.18); PROTHROMBIN TIME 19.5 SEC (9.3-11.3)
[2024-03-16] MEDS: Warfarin 5 MG Tab PO ONE (10:17)
[2024-03-16 10:56] VITALS: BP 142/73; PULSE 75
== END 2024-03-16 11:40 | disposition home or self-care (01) ==
LOC: CC.ED 22:58 → UNDOADMOB 03-15 00:30 → CC.MS 03-15 00:30
PROVIDERS: ADMIT Physician Assistant Medical; ATTEND Physician Assistant Medical
DX: R79.1 Abnormal coagulation profile (principal); S00.93XA Contusion of unspecified part of head, initial encounter; E87.1 Hypo-osmolality and hyponatremia; I10 Essential (primary) hypertension; Z87.891 Personal history of nicotine dependence; Z79.899 Other long term (current) drug therapy; Z79.01 Long term (current) use of anticoagulants; Z91.040 Latex allergy status; W18.30XA Fall on same level, unspecified, initial encounter; Y92.002 Bathroom of unspecified non-institutional (private) residence as the place of occurrence of the external cause
CPT/HCPCS: 36415; 70450; 71045; 72125; 72170; 80053; 80307; 81001; 83605; 85025; 85610; 86140; 97110-GP; 97161-GP; 99223; 99238; A9270-GY; C1758; J7030

== ENCOUNTER 2024-11-13 11:00 | Emergency (ER) | payer MEDICARE, OTHER ==
[2024-11-13 11:14] LABS: BASOPHILS ABSOLUTE AUTO 0.08 10^3/uL (0.00-0.50); BASOPHILS PERCENT AUTO 0.6 % (0-1); EOSINOPHILS PERCENT AUTO 0.8 % (0-6); HEMATOCRIT 37.8 % (37.0-47.0); HEMOGLOBIN 12.5 g/dL (12.0-16.0); IMMATURE GRAN ABSOLUTE AUTO 0.01 10^3/uL (0.00-0.49); IMMATURE GRAN PERCENT AUTO 0.1 % (0.0-4.9); LYMPHOCYTES ABSOLUTE AUTO 7.92 10^3/uL (0.60-5.00); MEAN CORPUSCULAR HEMOGLOBIN 32.2 pg (27.0-32.0); MEAN CORPUSCULAR HGB CONC 33.1 g/dL (32.0-36.0); MEAN CORPUSCULAR VOLUME 97.4 fL (83.0-97.0); MONOCYTES ABSOLUTE AUTO 0.52 10^3/uL (0.00-1.50); MONOCYTES PERCENT AUTO 4.1 % (0-10); NEUTROPHILS ABSOLUTE AUTO 3.94 x10^3/uL (1.80-8.00); NEUTROPHILS PERCENT AUTO 31.4 % (41-71); PLATELET COUNT,PLT 163 10^3/uL (150-400); RED BLOOD CELL COUNT 3.88 x10^6/uL (4.00-5.50); WHITE BLOOD CELL COUNT,WBC 12.6 10^3/uL (4.0-11.0)
[2024-11-13 11:26] LABS: INR 1.8 (0.92-1.18); PROTHROMBIN TIME 17.9 SEC (9.3-11.3); PTT,PARTIAL THROMBOPLSTIN TIME 24.7 SEC (20.0-30.0)
[2024-11-13 11:30] LABS: ALANINE AMINOTRANSFERASE,ALT 25 U/L (12-78); ALBUMIN 3.3 g/dL (3.4-5.0); ALKALINE PHOSPHATASE 42 U/L (46-116); ASPARTATE AMNIOTRANSFERASE,AST 25 U/L (15-37); BILIRUBIN TOTAL 0.6 mg/dL (0.0-1.0); BLOOD UREA NITROGEN,BUN 20 mg/dL (7-18); CALCIUM 9.3 mg/dL (8.4-10.1); CARBON DIOXIDE,CO2 29 mmol/L (21-32); CHLORIDE,CL 104 mEq/L (98-106); CREATINE KINASE,CK 39 U/L (21-215); CREATININE 0.9 mg/dL (0.6-1.0); ESTIMATED GFR 64 mL/min (>=60); GLUCOSE RANDOM 106 mg/dL (75-99); POTASSIUM,K 4.6 mEq/L (3.5-5.0); PROTEIN TOTAL,TP 6.7 g/dL (6.4-8.2); SODIUM,NA 141 mEq/L (136-145)
[2024-11-13 12:20] LABS: APPEARANCE,URINE CLEAR (CLEAR); BILIRUBIN,URINE NEGATIVE (NEGATIVE); COLOR,URINE YELLOW (YELLOW); GLUCOSE,URINE NEGATIVE (NEGATIVE); KETONES,URINE NEGATIVE (NEGATIVE); LEUKOCYTE ESTERASE,URINE NEGATIVE (NEGATIVE); NITRITE,URINE NEGATIVE (NEGATIVE); OCCULT BLOOD,URINE TRACE-INTACT (NEGATIVE); PROTEIN,URINE NEGATIVE (NEGATIVE); UROBILINOGEN,URINE 0.2 EU/dL (0.2-1.0)
[2024-11-13 12:31] LABS: BACTERIA,URINE RARE /HPF (NOT SEEN); EPITHELIAL CELLS,URINE OCCASIONAL /HPF (NOT SEEN); MUCUS,URINE OCCASIONAL /HPF (NOT SEEN); RBC,URINE 0-5 /HPF (0-5); WBC,URINE NOT SEEN /HPF (0-5)
== END 2024-11-13 13:25 | disposition home or self-care (01) ==
LOC: CC.ED 11:00
DX: S00.03XA Contusion of scalp, initial encounter (principal); I10 Essential (primary) hypertension; Z91.040 Latex allergy status; Z79.01 Long term (current) use of anticoagulants; Z79.899 Other long term (current) drug therapy; W01.198A Fall on same level from slipping, tripping and stumbling with subsequent striking against other object, initial encounter; Y93.89 Activity, other specified
CPT/HCPCS: 36415; 70450; 71045; 72125; 72170; 80053; 81001; 82550; 84484; 85025; 85610; 85730; 93005; 93010; 99284